=== PATIENT | female | born 1965 | race Caucasian/White ===

== ENCOUNTER 2016-08-15 14:01 | Inpatient (IN) | payer OTHER ==
[~2016-08-15] VITALS: Ht 167.6 cm; Wt 73.9 kg
--- NOTE | ~2016-08-15 | ECHO ---
Transthoracic Echocardiography Report (TTE) Demographics Patient Name FADY HOTY Date of Study 08/16/2016 Patient Number [id number] Visit Number [id number] Date of 1965 Room Number G6332 Accession Number [id number] Gender Female Age 50 year(s) Referring Ayden Joseph Military Education Coordinator Mitesh Gant Physician Don Angeles MD Physician Interpreting Katiuska Lamb MD Case Manager Specialist Physician Supervising Ordering Physician Kinsey Angeles MD/HUNG HARO Nurse Stress Salad Counter Attendant Conclusions Contractility Score Summary Normal Left Ventricular contractility was noted. Summary The estimated left ventricular ejection fraction is 55-60%. Normal left ventricle size and function. Diastolic assessment reveals Grade II pseudonormal diastolic function. The right atrium is mildly dilated. The ascending aorta appears mildly dilated. The maximum diameter measures 3.4 cm. Normal left ventricle size and function. Diastolic assessment reveals Grade II pseudonormal diastolic function. Apicoseptum shows mild to moderate hypokinesis Procedure Type of Study TTE procedure:2D Echocardiogram, M-Mode, Doppler , Color Doppler. Procedure Date Date: 08/16/2016 Start: 07:00 AM Study Location: Inpatient Portable Technical Quality: Good visualization Indications:Acute coronary syndrome. Appropriate Use Criteria: 9 Patient Status: Routine HR: 56 bpm BP: 91/55 mmHg Allergies - No known allergies. M-Mode/2D Measurements LV Diastolic Dimension: 5.21 cm LV Systolic Dimension: 3.16 cm LV Septum Diastolic: 0.77 cm LV PW Diastolic: 0.9 cm AO Root Dimension: 2.8 cm Cardiac Output: 4.06 l/min LA Dimension: 3.1 cm EF Estimated: 60 % LVOT: 1.9 cm LVOT VTI: 25.6 cm RV Base: 2.45 cm LV Stroke volume: 72.55 ml RV Length: 7.88 cm TAPSE: 2.11 cm TDI-S': 9.54 cm/s Doppler Measurements AV Peak Velocity: 1.23 m/s MV Peak E-Wave: 0.62 m/s AV Peak Gradient: 6.05 mmHg MV Peak A-Wave: 0.57 m/s AV Mean Gradient: 4 mmHg MV E/A Ratio: 1.09 LVOT Peak Velocity: 0.99 m/s MV P1/2t: 51 msec TR Gradient:17.64 mmHg PV Peak Velocity: 0.74 m/s Estimated RAP:8 mmHg PV Peak Gradient: 2.17 mmHg Estimated RVSP: 26 mmHg Estimated PASP: 25.64 mmHg E' Septal Velocity: 0.06 m/s A' Septal Velocity: 0.09 m/s E' Lateral Velocity: 0.13 m/s A' Lateral Velocity: 0.09 m/s Findings Left Ventricle Normal left ventricle size and function. Diastolic assessment reveals Grade II pseudonormal diastolic function. Apicoseptum shows mild to moderate hypokinesis Right Ventricle Normal right ventricle structure and function. Left Atrium Normal left atrial size. Right Atrium The right atrium is mildly dilated. Mitral Valve Trivial mitral regurgitation by color Doppler. Aortic Valve Normal aortic valve structure and function. Tricuspid Valve Trivial tricuspid regurgitation by color Doppler. Pulmonic Valve Normal pulmonic valve structure and function. Pericardial Effusion No evidence of pericardial effusion. Miscellaneous Visualized portions of the aortic root and ascending aorta appear normal in size. Pleural Effusion No evidence of pleural effusion. Contractility Score LV regional wall motion:(0-Non visualized 1-Normal 2-Hypokinesis 3-Akinesis 4-Dyskinesis 5-Aneurysm) Signature dtt: Adonis Harp (cardio) dtd: 08/16/16 0700 Physician Self Edit
--- NOTE | ~2016-08-15 | CON ---
PATIENT'S NAME: FADY HOYT [facility] AGE: 50 Y [address] ROOM: [address] [place] [id number] LOCATION: GPCU ADMIT DATE: 08/15/2016 Consultation DISCHARGE DATE: 08/17/2016 FAMILY PHYSICIAN: Opal Hensley APRN ATTENDING PHYSICIAN: TRAMAINE MATHUR REFERRING PHYSICIAN: Adonis Harp MD REASON FOR CONSULTATION: Elevated cardiac enzymes. HISTORY OF PRESENT ILLNESS: This is a 50-year-old female who presented to the emergency room on 08/15/2016 with complaints of migraine. She started having a migraine which is a frequent occurrence for her, that was fairly severe. She did not have any blurred vision or vision changes. She did not have any nausea initially. She took a Maxalt tablet, and subsequently, she started experiencing palpitations, the palpitations then resolved, and then she started experiencing chest heaviness in the center of her chest. There is no radiation to the back or neck, but it was very concerning, so she was brought to the emergency room. She was given nitroglycerin in the emergency room and the chest pain resolved. She does carry a history of supraventricular tachycardia which was diagnosed in May. At that time, she had seen Dr. Lopez and had an echocardiogram that did not show any abnormalities according to her. She has not had any problems with exertional chest pain. She has been a little more fatigued lately. She denies shortness of breath, orthopnea, or PND. PAST MEDICAL HISTORY: 1. Migraines. 2. History of CVA. 3. Leukopenia. 4. Psoriasis. PAST SURGICAL HISTORY: 1. Total abdominal history with BSO. 2. Needle aspiration of thyroid in December 2015. 3. History of endometrial ablation before the hysterectomy. ALLERGIES: NONE TO MEDICATION. HOME MEDICATIONS: 1. Excedrin migraine 1-2 caps every 12 hours p.r.n. headache. 2. Vitamin D3 5000 mg every day. 3. Estradiol 0.5 mg transdermal two days a week, on Sunday and . 4. Naproxen 500 mg b.i.d. 5. Maxalt 10 mg every 12 hours p.r.n. PATIENT'S NAME: FADY HOYT [facility] AGE: 50 Y [address] ROOM: [address] [place], [place] [address] LOCATION: GPCU ADMIT DATE: 08/15/2016 Consultation DISCHARGE DATE: 08/17/2016 FAMILY PHYSICIAN: Opal Hensley APRN ATTENDING PHYSICIAN: TRAMAINE MATHUR FAMILY HISTORY: Mother has hypertension. Father had hypertension and high cholesterol. She has a brother with migraines and sister with migraines. SOCIAL HISTORY: She is . Her is with her today. She has never smoked. Rarely uses alcohol. REVIEW OF SYSTEMS: Head: She does have frequent migraine headaches. EYES: No blurred vision or double vision. EARS: No problems with hearing. NOSE: No epistaxis or rhinorrhea. MOUTH: No gingival bleeding. THROAT: Denies sore throat, hoarseness, or difficulty swallowing. PULMONARY: There is no report of cough or hemoptysis. No history of pulmonary embolus. GASTROINTESTINAL: Negative for nausea, vomiting, or diarrhea. No melena or hematochezia. No history of elevated liver enzymes. GENITOURINARY: Negative for urinary frequency, she is post complete hysterectomy. MUSCULOSKELETAL: No complaints of arthralgias or myalgias. NEUROLOGIC: She denies numbness or tingling. No feelings off balance. PHYSICAL EXAMINATION: VITAL SIGNS: She is 5 feet and 6 inches tall. Weighs 159 pounds. Blood pressure is 143/73, heart rate 62, temperature is 97.6. SKIN: Warm, dry, and pink. HEENT: Pupils equal, round, and react briskly. NECK: Soft and supple. No lymphadenopathy or thyromegaly. JVD is flat. LUNGS: Sounds are clear. CV: Regular with a normal S1, S2. ABDOMEN: Soft. Bowel sounds are present. EXTREMITIES: Show no peripheral edema. No clubbing. No cyanosis. LAB: Cardiac enzymes show a troponin I of 0.060 to 1.36. CK-MB went from 1.1 to as high as 7.3, glucose 99, BUN 13, creatinine 0.9. Sodium is 141, potassium 3.6, hemoglobin was 14.4, white count 6.6. UA was normal. ASSESSMENT: Non ST-elevation myocardial infarction. We will plan on a left heart catheterization today, suspect left circumflex lesion. The risks and benefits have been discussed with her and she is in agreement with proceeding with that PATIENT'S NAME: FADY HOYT [facility] AGE: 50 Y [address] ROOM: [place] [address] LOCATION: GPCU ADMIT DATE: 08/15/2016 Consultation DISCHARGE DATE: 08/17/2016 FAMILY PHYSICIAN: Opal Hensley APRN ATTENDING PHYSICIAN: TRAMAINE MATHUR. The assessment plan, history of present illness, and physical exam per Dr. Ashely Harp. KEVIN HANEY APRN FOR MD ZAYNAB ROBERTS/alirio /[id number] d: 08/17/16 1321 t: 08/26/16 1312, CONSULTATION REPORT
--- NOTE | ~2016-08-15 | HP ---
PATIENT'S NAME: FADY HOYT [facility] AGE: 50 Y [address] ROOM: [place] [address] LOCATION: GPCU ADMIT DATE: 08/15/2016 History & Physical DISCHARGE DATE: FAMILY PHYSICIAN: Opal Hensley APRN ATTENDING PHYSICIAN: TRAMAINE MATHUR DATE OF SERVICE: CHIEF COMPLAINT: Headache and chest pressure. HISTORY OF PRESENT ILLNESS: This is a 50-year-old female, who presented to the ER today with headache. The patient states that she has a history of migraines. She started having a migraine that was pretty sudden in onset and pretty severe. She did not have any blurry vision or vision changes at that point of time. She did not have any nausea. The patient took a Maxalt tablet. Subsequently, she started experiencing palpitations. The palpitations then resolved. She also had chest pressure that was in the center of the chest with no radiation to the back or into the neck. She was then brought to the ER at that point of time. She was given nitroglycerin in the ER and her chest pressure resolved. Currently, she is chest pain-free. Her headache also resolved after some pain medications in the ER. The patient states that she has a history of SVT that she was diagnosed in May of last year. At that point of time, she was placed on medication. She also had an echo done that was clean at that point of time. The patient denies any shortness of breath. She denies any lightheadedness. She denies any abdominal pain. Denies diarrhea or constipation. No other complaints at this point in time. REVIEW OF SYSTEMS: Ten-point review of systems done and was otherwise negative except as mentioned above. HOME MEDICATIONS: Per AUG. PAST MEDICAL HISTORY: 1. History of SVT. 2. History of migraine. FAMILY HISTORY: No history of cancer or heart disease reported. SOCIAL HISTORY: Denies smoking or alcohol use. PATIENT'S NAME: FADY HOYT [facility] AGE: 50 Y [address] ROOM: [address] [place] [id number] LOCATION: GPCU ADMIT DATE: 08/15/2016 History & Physical DISCHARGE DATE: FAMILY PHYSICIAN: Opal Hensley APRN ATTENDING PHYSICIAN: TRAMAINE MATHUR ALLERGIES: NONE REPORTED. PHYSICAL EXAMINATION: VITAL SIGNS: Temperature 97.6, pulse 62 and regular, respirations 17, blood pressure 141/73, saturation 98% on room air. GENERAL: The patient is alert and oriented x3, answers all questions appropriately, in no acute distress. HEENT: Head: Normocephalic, atraumatic. Pupils are equal, round, and reactive to light, extraocular muscles are intact. Oropharynx is moist. NECK: Supple. No nuchal rigidity. HEART: Regular rate and rhythm. LUNGS: Clear to auscultation bilaterally. ABDOMEN: Soft, nontender, nondistended. Bowel sounds are present. EXTREMITIES: No clubbing, cyanosis, or edema. VASCULAR: Pulses are 2+ distally bilaterally. NEUROLOGIC: The patient is alert and oriented x3. Follows all commands. Moves all extremities. Cranial nerves 2 through 12 grossly intact. Deep tendon reflexes are 2+/4. DIAGNOSTIC STUDIES: Cardiac enzymes were done. CPK 82 and subsequently 95. Troponin I 0.06 and subsequently increased to 1.36. CBC showed a white count of 6.6, hemoglobin 14.4, hematocrit 42.6, and platelets 244. CMP showed sodium 141, potassium 3.6, chloride 104, bicarb 25, BUN 13, creatinine 0.9, glucose 99, calcium 9.2, total protein 8.0, albumin 4.3, AST 19, ALT 27, alkaline phosphatase 58, total bilirubin 0.5, mag 2.2. GFR more than 60. Lipid panel pending at this point of time. PT 10.6, INR 1.0, and PTT 26. CK-MB 1.1 and subsequently 3.6. TSH 1.48. Chest x-ray was done in the ER for chest pain and showed no acute cardiopulmonary abnormality. Head CT was done for severe migraine and showed no acute intracranial pathology on noncontrast head CT study. EKG was done and showed sinus rhythm with no acute ST changes at a rate of 69 beats per minute. ASSESSMENT AND PLAN: A 50-year-old female presenting with migraine and xru-BX-obbixme elevation myocardial infarction. 1. Migraine. The patient took Maxalt. She was subsequently given pain medication in the ER and her migraine headache has resolved. Monitor for now. 2. History of supraventricular tachycardia. The patient has a history of supraventricular tachycardia in the past. She also had tachycardia today. Per the patient, the tachycardia appears to have resolved. Monitor for now. EKG does not show any changes of abnormal heart rhythm. PATIENT'S NAME: FADY HOYT [facility] AGE: 50 Y [address] ROOM: [place] [address] LOCATION: [facility] ADMIT DATE: 08/15/2016 History & Physical DISCHARGE DATE: FAMILY PHYSICIAN: Opal Hensley APRN ATTENDING PHYSICIAN: TRAMAINE MATHUR 3. Scm-BE-ehpivkv elevation myocardial infarction. The patient's cardiac enzymes are elevated. Her chest pressure has resolved currently. I will consider nitroglycerin drip if the patient's chest pressure returns. We will place her on the ACS protocol. Discussed with Dr. Adonis Harp, Cardiology. We will obtain an echocardiogram in the a.m. I will place the patient on heparin drip for now. 4. Code status: FULL CODE. Discussed with the patient at the time of admission. 5. Deep vein thrombosis prophylaxis. The patient is on heparin drip. TRAMAINE MATHUR MD MT/alirio /[id number] D: T: HISTORY & PHYSICAL
--- NOTE | ~2016-08-15 | CATH ---
Cardiac Diagnostic + PCI Report Demographics Patient Name EVELINA Thurman Gender Female Date of 1965 Age 50 year(s) Patient Number [id number] Date of Study 08/16/2016 Visit Number [id number] Room Number G6332 [place] [id number] Ht 167.64 cm Wt 72.12 kg Referring Katiuska Lamb MD Primary Physician Physician Performing [facility] Secondary Physician Physician Subha HARO Diagnostic [facility] Assisting Physician Physician Subha HARO Interventional [facility] Physician Liability Analyst Physician Subha HARO Findings and Conclusions Diagnostic Findings and Conclusion 1 vs CAD, distal LAD subtotalled and apical LAD with 60% lesion, diffuse disease, very small vessel. Patiend admitted with NSTEMI and trop I was 3.56. Diagnostic Recommendations PTCA of distal LAD. Interventional Findings and Conclusion Successful PTCA of the distal LAD with prolonged inflations with 2.0/20 mm balloon at 6 elisa for 1:30 seconds: 99% stenosis with residual 30% stenosis in the distal LAD lesion. Did not attempt PTCA of the apical LAD as the vessel was very small. 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 Patient will be observed overnight. Hydration and followup creatinine. Patient has been instructed to not lift anything more than 5 pounds for 1 week. Aggressive risk factor management. Beta Jorge. Dual Anti-platelet therapy for 1 year since she had a NSTEMI. Lipid lowering medication: statin will be given. Cardiac diet . Optimization of medical therapy as an outpatient. Referral to Cardiac Rehabilitation now and at discharge . I would like to thank Dr. Harp for the opportunity to participate in the care of Mrs Ladd . Procedure Description The patient was brought to the diagnostic cardiac catheterization-EP laboratory in the fasting, non-sedated state. Informed consent was obtained in the written and verbal form after the risks and benefits were explained. The patient had no further questions and agreed to proceed. The planned puncture-incision site(s) were shaved and prepped with ChloraPrep and draped in the usual sterile manner. Conscious sedation, supplemental oxygen, and pain control medications were delivered by a registered nurse under physician guidance. Surface ECG rhythm, blood pressure measurement, and pulse oximetry were monitored throughout the procedure. Arterial access. The access site was infiltrated with lidocaine. The vessel was entered with the Seldinger technique. A sheath was advanced into the vessel and used for catheter placement. Left heart catheterization. A catheter was advanced across the aortic valve to the left ventricle under fluoroscopic guidance. Resting hemodynamics were obtained. Selective right coronary angiography. A catheter was advanced into the right coronary vessel ostium under fluoroscopic guidance. Contrast was injected by hand. Images were obtained in multiple projections. Selective left coronary angiography. A catheter was advanced into the left coronary vessel ostium under Fluoroscopic guidance. Contrast was injected by hand. Images were obtained in multiple projections. Angioplasty: A guiding catheter was used to intubate the vessel. A 0.14 wire was used to cross the lesion. A balloon was positioned across the lesion and inflated. Post placement angiograms were performed. Arterial artery hemostasis was achieved. The patient was transferred to a regular nursing floor via bed accompanied by a nurse. The patient left the laboratory in stable condition. Diagnostic Cath Status: Urgent Interventional Cath Status: Urgent Procedure Procedure Type Diagnostic procedure:Angiography:, Coronary Angios /[facility] PCI procedure Indications: Non-ST elevation. The procedure was explained in detail to the patient. Risks, complications and alternative treatments were reviewed. Written consent was obtained. Medications Reviewed with Patient prior to Procedure. Angiographic Findings Dominance: Right Cardiac Arteries and Lesion Findings LMCA: Normal (0% Stenosis). LAD: Abnormal. Lesion on Dist LAD: Proximal subsection.99% stenosis 20 mm length reduced to 30%. Pre procedure PIPER III flow was noted. Post Procedure PIPER III flow was present. The guidewire cross was successful.The lesion was diagnosed as a high risk lesion.Culprit lesion. Devices used - Runthrough NS .014 x 180. Number of passes: 1. - Emerge Balloon 2.0 x 20. 3 inflation(s) to a max pressure of: 6 elisa. Lesion on Dist LAD: Distal subsection.60% stenosis . Pre procedure PIPER III flow was noted. The lesion was diagnosed as a moderate risk lesion. LCx: Normal (0% Stenosis). RCA: Normal (0% Stenosis). Ramus: Normal (0% Stenosis). Coronary Tree Procedure Data Procedure Date Date: 08/16/2016Start: 11:21 AMEnd: 12:16 PM Entry Locations - Retrograde Percutaneous access was performed through the Right Radial artery (Primary location). A 5 Fr sheath was inserted. Hemostasis was successfully obtained using Mechanical Compression. Closure Comments: TR BHARAT HAS 13CC AIR BY BERTHA YBARRA. Procedure Medications Order and Administration + + + + + !Time !Medication !Dosage !Route ! + + + + + !08/16/2016 11:16 !Versed !1 mg !I.V. ! !AM ! ! ! ! + + + + + !08/16/2016 11:17 !Fentanyl !25 mcg !I.V. ! !AM ! ! ! ! + + + + + !08/16/2016 11:26 !Heparin (ACC_3) !4000 units !I.V. bolus ! !AM ! ! ! ! + + + + + !08/16/2016 11:32 !0.9% NaCl !200 ml !I.V. bolus ! !AM ! ! ! ! + + + + + !08/16/2016 11:33 !Nitroglycerin !200 mcg !I.C. ! !AM ! ! ! ! + + + + + !08/16/2016 11:35 !Fentanyl !25 mcg !I.V. ! !AM ! ! ! ! + + + + + !08/16/2016 11:41 !Angiomax (Bivalirudin) !52.5 mg !I.V. bolus ! !AM !(ACC_5) ! ! ! + + + + + !08/16/2016 11:42 !Angiomax (Bivalirudin) !1.75 mg/kg/hr!I.V. drip ! !AM !(ACC_5) ! ! ! + + + + + !08/16/2016 11:57 !0.9% NaCl !200 ml !I.V. bolus ! !AM ! ! ! ! + + + + + !08/16/2016 11:58 !Nitroglycerin !200 mcg !I.C. ! !AM ! ! ! ! + + + + + !08/16/2016 12:03 !Plavix (ACC_8) !600 mg !P.O. ! !PM ! ! ! ! + + + + + Devices Used - A5 Fr. BS JL 3.5 Diag. Catheterwas used for:Left coronary angiography. - A6 Fr. EBU 3.5 Guide Catheterwas used for:LAD Intervention. - A5 Fr. BS JR 4 Diag. Catheterwas used for:Right coronary angiography. Contrast Material - Isovue [id number] ml Fluoroscopy Time: Diagnostic: 13:42 minutes. Total: 13:42 minutes. Fluoroscopy Dose: Diagnostic: 1136 mGy. Total: 1136 mGy. Estimated Blood Loss: 5 ml. Additional [facility] PCI Information PCI Indication:PCI for high risk Non-STEMI or unstable angina. Medical History Allergies - No known allergies. Risk Factors The patient risk factors include:hypertension. Admission Data Admission Date: 08/15/2016 Admission Time: 03:54 PM Insurance Payors: Private health insurance. Admission Medications + +------+------+ + + + + !Medication !Dosage!Times !Last !Last !Administered !Comments ! ! ! !Per !Delivery !Delivery ! ! ! ! ! !Day !Date !Time ! ! ! + +------+------+ + + + + !Aspirin ! ! ! ! ! ! ! !(any) ! ! ! ! ! ! ! + +------+------+ + + + + !Statin ! ! ! ! ! ! ! !(any) ! ! ! ! ! ! ! + +------+------+ + + + + !Beta ! ! ! ! ! ! ! !Jorge ! ! ! ! ! ! ! !(any) ! ! ! ! ! ! ! + +------+------+ + + + + Clinical Evaluation Leading to Procedure Diagnosed on 08/16/2016 08:00 AM. - The patient's CAD presentation was assessed as: Non-STEMI. - The patient's anginal syndrome during the past two weeks was assessed as: Class III according to the [place] Cardiovascular Society Classification System (CCS). Anti-anginal medications were prescribed during the past two weeks. The medication is: Beta Blockers. Hemodynamics Condition: Rest O2 Consumption: Estimated: 161.02Heart Rate: 47 bpm Pressures (mmHg) +-----+ + !Site !Pressure ! +-----+ + !LV !131/7 ,19 ! +-----+ + !LV !133/2 ,17 ! +-----+ + !AO !131/76 (98) ! +-----+ + !LV !130/7 ,19 ! +-----+ + !AO !133/81 (102) ! +-----+ + !AO !/ (2) ! +-----+ + !AO !109/25 (58) ! +-----+ + !AO !160/90 (117) ! +-----+ + !AO !145/79 (104) ! +-----+ + Valve Gradients and Areas + +---------+---------+---------+ +---------+ + !Valve !Peak !Mean !Area !Index !Flow !Source ! + +---------+---------+---------+ +---------+ + !Aortic !0 !0 ! ! ! ! ! + +---------+---------+---------+ +---------+ + !Aortic !0 !0 ! ! ! ! ! + +---------+---------+---------+ +---------+ + Shunts Oxygen Values O2 Capacity 195.84 O2 Consumption 161.02 Signatures dtt: SUBHA HAIR dtd: 08/16/16 1121 Physician Self Edit
--- NOTE | ~2016-08-15 | CON ---
PATIENT'S NAME: FADY HOYT [facility] AGE: 50 Y [address] ROOM: [id number] [place], [place] [address] LOCATION: GPCU ADMIT DATE: 08/15/2016 Consultation DISCHARGE DATE: 08/17/2016 FAMILY PHYSICIAN: Opal Hensley APRN ATTENDING PHYSICIAN: TRAMAINE MATHUR DATE OF CONSULTATION: 08/17/2016 REFERRING PHYSICIAN: Adonis Harp MD NEUROLOGICAL CONSULTATION TIME: 10:39 a.m. CHIEF COMPLAINT: Migraine headache. HISTORY OF PRESENT ILLNESS: This is a 50-year-old, who presented to the emergency room via an outside EMS service. She had a migraine around 10 o'clock and she took her Maxalt, which she normally takes for migraines and then took a second Maxalt several hours later and developed some chest pain. The pain lasted about 2 minutes and it was pressure type without nausea, vomiting, shortness of breath, or diaphoresis, but she did come to the hospital for this. They gave her baby aspirin en route. Since she arrived at the hospital, she has since had a heart cath and a PTCA of the LAD. Thus the Maxalt is not a good idea of moving forward with her migraine headache treatment. She has been having migraine headaches for years. She has tried Topamax as a preventive medication without success. She states she gets a lot of side effects with that. Her headaches are described as throbbing. They go around the right side of her head and down into her neck. She says she cannot focus and certainly cannot work with these headaches. No nausea and vomiting with the headaches. She has been on the Maxalt for years and usually takes anywhere from 6 to 12 per month. Her headaches are very variable, but do not seem to run in a pattern with seasons or stress or work flow. She has had an MRI and a CT and show no pathology. Her concern moving forward is what does she do for her headaches since Triptans are definitely out of the picture now. She did take an Excedrin Migraine this morning, which was somewhat helpful. She has tried nasal oxygen, but that does not seem to have moved her headache at all. She does have no known allergies. Medications that were on the chart and reviewed. Of note, she is on estradiol and has been for some time. The Maxalt of course has been discontinued. She has been started on Toprol-XL also since her heart event. PAST MEDICAL HISTORY: PATIENT'S NAME: FADY HOYT [facility] AGE: 50 Y [address] ROOM: [id number] [place], [place] [address] LOCATION: GPCU ADMIT DATE: 08/15/2016 Consultation DISCHARGE DATE: 08/17/2016 FAMILY PHYSICIAN: Opal Hensley APRN ATTENDING PHYSICIAN: TRAMAINE MATHUR Includes these migraines and SVT. PAST SURGICAL HISTORY: Includes hysterectomy and thyroid biopsy. SOCIAL HISTORY: She denies drug, smoking, or alcohol use. She works in a busy physician's office. REVIEW OF SYSTEMS: She denies nausea, vomiting, photophobia, or phonophobia at this time. Her headache is a 7/10. The headache is mostly on the right side of her head and going down to her neck. She states when she does have a headache, it usually lasts 72 hours. Denies nausea and vomiting and the rest of the review of systems was negative except as mentioned. PHYSICAL EXAMINATION: VITAL SIGNS: Her height is 5 feet 6 inches, and her stated weight is 73.3 kg. Blood pressure is 142/72, pulse 59, respirations 16, temperature is afebrile, and saturations are 99% on the 2 L nasal cannula that she is using to try to get rid of her headache. GENERAL: She is alert, anxious, well-developed 50-year-old, female. She participates in the exam and interview. HEENT: Her head is normocephalic and atraumatic. Her ears show good light reflexes bilaterally. Throat without thyromegaly. NECK: Supple. No lymphadenopathy. No nuchal rigidity. LUNGS: Clear to auscultation bilaterally. HEART: Regular rate and rhythm. No murmurs noted. NEUROLOGIC: Cranial nerves 2 through 12 intact. Pupils are equal, round, reactive to light and accommodation. Red reflex intact. Power is intact with good muscle development x4 extremities. Gait was not observed. MUSCULOSKELETAL: Good muscle development throughout. Of note, her left sternocleidomastoid muscle is quite tense. DIAGNOSTIC DATA: Includes a CT done in the emergency room with no acute intracranial pathology identified. In summary, this is a 50-year-old female presenting with migraine and long- time year of Triptans who has now had a non-STEMI. Triptans are no longer indicated and we need a different plan moving forward. 1. Of course, to discontinue the Triptan, which is already been done. The patient was educated on why the use of Triptans are not a viable option at this time. 2. Use Aleve or ibuprofen or Excedrin Migraine for breakthrough headache. PATIENT'S NAME: FADY HOYT [facility] AGE: 50 Y [address] ROOM: [id number] [place], [place] [address] LOCATION: GPCU ADMIT DATE: 08/15/2016 Consultation DISCHARGE DATE: 08/17/2016 FAMILY PHYSICIAN: Opal Hensley APRN ATTENDING PHYSICIAN: TRAMAINE MATHUR The patient was educated on functioning of the ibuprofen for rapid absorption. 3. Prophylactic medication. The patient has enough migraines per month to warrant prophylactic medication. She has tried Topamax, but has not had good luck with that related to side effects. We will start Depakote 250 mg b.i.d. At this low dose and because this is not used for seizures, there will be no need to monitor levels. The only monitoring will be her liver enzymes, which are checked once yearly. Her liver enzymes are within normal limits at this hospitalization. The side effects of Depakote including possible sleepiness and liver involvement were discussed with the patient. 4. Consider weaning the estradiol patches. This was told to the patient and she will discuss this with her primary care physician. 5. For long-term treatment of the migraines, consider Botox injections. Would like the patient to follow up in Neurology Clinic in 4 weeks. Botox injections can decrease the intensity of the headache by 50% and also decrease the frequency of the headache by 50%. 6. Can use Fioricet 1 to 2 q.6 hours p.r.n. migraine pain. The patient has tried 1 of these in the past, but really cannot remember if it was successful or not. The plan of care was communicated to Dr. Chan. Dr. Abdalla and I saw the patient in tandem. The patient and her friend's questions were answered to the best of our abilities. The plan of care was understood by the patient. I would like to thank you for this interesting consultation and welcome the ability to treat this patient for her chronic migraines. YULIANA HICKS APRN FOR BRITTNEE ABDALLA MD PP/alirio /[id number] d: 08/17/16 1614 t: 08/21/16 1322, CONSULTATION REPORT
--- NOTE | ~2016-08-15 | ER ---
PATIENT'S NAME: FADY HOYT [facility] AGE: 50 Y [address] ROOM: [address] [place], [place] [address] [facility] ADMIT DATE: 08/15/2016 ER/Outpatient Report DISCHARGE DATE: FAMILY PHYSICIAN: Opal Hensley APRN ATTENDING PHYSICIAN: TRAMAINE MATHUR Time of Arrival: 1401 hours. Time of Evaluation: 1401 hours. CHIEF COMPLAINT: Migraine headache and short episode of chest pain. HISTORY OF PRESENT ILLNESS: A 50-year-old female presents to the ER via [facility]. The patient states she started having a migraine headache around 10 o'clock this morning. It was a sudden onset of her migraine which is unusual for her normal migraine and she did take a Maxalt. She states she took a second Maxalt around noon today and then after that dose she developed some substernal chest pain. She states that pain lasted approximately 2 minutes, it was pressure-type pain, it did not cause her any nausea, no vomiting, no shortness of breath, no diaphoresis. She states the pain did not radiate anywhere. She states this concerned her, so she called 911. En route here to the hospital her chest pain went away. They did give her baby aspirin en route. On my initial examination, the patient continued to be chest pain free. States her headache has returned. She states that her pain in her head is approximately a 9/10. She states that she does have history of migraines. She had a similar migraine like this last week, but it did go away with the Maxalt at home. She had had an upper respiratory infection a couple weeks ago but has gotten over that. She states that she does have a history of SVT and she did have an echo done in [place] at the end of May and has followed up with Dr. Lopez in June. She states everything checked out okay at that time. ALLERGIES: NO KNOWN ALLERGIES. MEDICATIONS: Please see medication list in nurse's notes. PAST MEDICAL HISTORY: Migraines and SVT. She has had a hysterectomy and a thyroid biopsy. SOCIAL HISTORY: Denies smoking, drug, or alcohol use. REVIEW OF SYSTEMS: PATIENT'S NAME: FADY HOYT [facility] AGE: 50 Y [address] ROOM: [address] [place], [place] [address] LOCATION: GPCU ADMIT DATE: 08/15/2016 ER/Outpatient Report DISCHARGE DATE: FAMILY PHYSICIAN: Opal Hensley APRN ATTENDING PHYSICIAN: TRAMAINE MATHUR A 10-point review of system was completed and was negative with the exception of those discussed in the HPI. PHYSICAL EXAMINATION: VITAL SIGNS: Height 5 feet 6 inches, stated; weight 73.3 kg, taken; blood pressure is 175/98; pulse 64; respirations 16; temperature 96.4 degrees tympanically; saturations 99% on room air. Manju Coma Score is 15. GENERAL: Alert, anxious, well developed, 50-year-old, in mild distress. HEENT: Head, normocephalic. Ears; TMs display good light reflexes bilaterally. Auditory canals clear. Nose; turbinates pink with no drainage. Throat; no exudates or erythema. She does display moist mucous membranes. Eyes; pupils are equal and reactive to light. NECK: Supple. No lymphadenopathy. LUNGS: Clear to auscultation bilaterally. No wheezes or crackles. Normal respiratory effort. HEART: Regular rate and rhythm. No lifts, thrills, or murmurs. ABDOMEN: Soft, it is nontender. She has good bowel sounds throughout. No masses were palpated. EXTREMITIES: No clubbing or cyanosis. She does have full range of motion of all limbs. NEUROLOGIC: Cranial nerves 2 through 12 grossly intact. Gait not observed. SKIN: Warm, dry, and intact. LABORATORY DATA: CBC; white count is 6.6, hemoglobin 14.4, platelets 244. ANC is 4.4. INR is 1.0. CMS; potassium is 3.6, otherwise, unremarkable. Magnesium is 2.2. CPK is 82. CK-MB is 1.1. Troponin I is 0.060. EKG shows sinus rhythm. Chest x- ray was negative for any infiltrate. CT scan of the head was negative. IMPRESSION: 1. Episode of chest pain with elevated troponin. 2. Migraine headache. 3. History of SVT ASSESSMENT AND PLAN: We did establish an IV here in the emergency room and we did give her a liter of fluids along with 50 mg of Benadryl and 10 mg of Compazine. The patient states that this did not really change her headache at all, so we did give her 2 mg of morphine and 30 mg of Toradol which really improved her pain. The patient does not have a primary care physician here in [place]. I did give her option if she would like to keep her first crusher, but the patient states that she would like to stay here and she will see a first crusher that is provided here at [facility]. The patient continued to rest comfortably. Prior to her CT scan, her chest discomfort did come back, but she states that it was only a 2/10 and that when we gave her morphine and Toradol that did improve that pain. I did call Dr. Mathur who was on-call for the hospitalist, PATIENT'S NAME: FADY HOYT [facility] AGE: 50 Y [address] ROOM: [address] [place] [id number] [facility] ADMIT DATE: 08/15/2016 ER/Outpatient Report DISCHARGE DATE: FAMILY PHYSICIAN: Opal Hensley APRN ATTENDING PHYSICIAN: TRAMAINE MATHUR and he will be admitting her for chest pain rule out. The patient and patient's family understand and agree with care. DESIRAE COX PA-C FOR DO MAU BLAKE/mauricel /[id number] d: 08/16/16 0523 t: 08/23/16 1332, OUTPATIENT REPORT
--- NOTE | ~2016-08-15 | DS ---
PATIENT'S NAME: FADY HOYT [facility] AGE: 50 Y [address] [place]OM: [facility] [place], [place] [address] LOCATION: GPCU ADMIT DATE: 08/15/2016 Discharge Summary DISCHARGE DATE: 08/17/2016 FAMILY PHYSICIAN: Opal Hensley APRN ATTENDING PHYSICIAN: Jared Euceda FINAL DIAGNOSES: 1. Non-ST elevation myocardial infarction. 2. Migraine headaches. 3. History of supraventricular tachycardia. PROCEDURES: She had a PTCA of the distal LAD. It was unable to be stented due to size. This was done on August 16, 2016, by Dr. Garcia. Please see the history and physical dictated by Dr. Euceda for details of admission. LABORATORY DATA: On admission, sodium 141, potassium 3.6, chloride 104, CO2 of 25, BUN 19, creatinine 0.3. Liver enzymes were normal. Initial troponin was 0.06. Her troponins then did jump to peak of 3.5, then trended downward, value most prior to discharge 0.552. BUN prior to discharge 11, creatinine 0.8. On admission, white blood cell count 6.6, hemoglobin 14.4, hematocrit 42.6, and platelet count 244. PTT was 26, pro-time 10.6, INR 1. IMAGING DATA: Chest x-ray on admission did not show any acute pulmonary process. CT scan of the head done on admission due to migraine did not show any intracranial abnormality. HOSPITAL COURSE: The patient was admitted with concern of a non-STEMI. Her cardiac enzymes did continue to rise. The patient was placed on IV heparin, and Cardiology was asked to see the patient. I did feel that she would need to have a cardiac catheterization. The patient was taken to the orthodontic laboratory technician. Please see the cath report for full details. The patient had a 99% lesion in the distal LAD. However, it was not amenable to stent, and an angioplasty was done. Postoperatively, she was admitted back to floor and continued to complain of a migraine headache like she had on admission. Because of the recent PA, she was not able to use her Maxalt, and we are unable to use anti- inflammatories. There was some concern about how she was going to manage this as an outpatient, so she was seen by Teleneurology Service in consultation. [facility] and try Fioricet for when she had pain. Dr. Harp did note on postprocedure day one EKG, which showed T-wave inversions. He did change her aspirin to 325 mg and put on nitroglycerin patch. It was felt that she was stable for discharge to home. She will follow up with Dr. Harp with a BMP in 2 weeks. She will see Lizbeth Ornelas APRN in 4 weeks, September 13. Her activity restrictions were post cath routine restrictions. She was also advised to do Cardiac Rehab Phase II. Advised not to use nonsteroidals for 30 days. PATIENT'S NAME: FADY HOYT [facility] AGE: 50 Y [address] ROOM: [id number] [place] [id number] LOCATION: GPCU ADMIT DATE: 08/15/2016 Discharge Summary DISCHARGE DATE: 08/17/2016 FAMILY PHYSICIAN: Opal Hensley APRN ATTENDING PHYSICIAN: Jared Euceda DISCHARGE MEDICATIONS: 1. Estradiol 0.5 patch, change 2 times per week. 2. Vitamin D 5000 units daily. 3. Excedrin Migraine 1-2 every 12 hours as needed for headache. 4. Lipitor 40 mg daily. 5. Plavix 75 mg daily. 6. Vasotec 2.5 mg daily. 7. Toprol-XL 12.5 mg daily. 8. Aspirin 325 mg daily. 9. Depakote 250 mg twice daily. 10. Fioricet 1-2 every 6 hours as needed. 11. Nitroglycerin patch 0.2 mg on in the morning, off at night. OVERALL PROGNOSIS: At discharge was good. DAVID HENDERSON MD LAW/modl /[id number] CC: JULIO CESAR Rosenberg MD Pamela Palmer, APRN d: 08/18/16 0137 t: 08/30/16 1642, DISCHARGE SUMMARY
[2016-08-15 14:24] LABS: BASOPHIL % 0.5 %; EOSINOPHIL % 0.5 %; HEMATOCRIT 42.6 % (33.0-46.0); HEMOGLOBIN 14.4 g/dL (10.0-15.0); IMMATURE GRANULOCYTE % 0.2 %; LYMPHOCYTE # 1.8 K/uL (0.8-4.0); MCH 30.3 pg (27.0-34.0); MCHC 33.8 gm/dL (32.0-36.5); MCV 89.5 fl (83.0-98.0); MONOCYTE # 0.4 K/uL (0.0-1.0); MONOCYTE % 5.9 %; MPV 9.5 fl (9.4-12.4); NEUTROPHIL # (ANC) 4.4 K/uL (1.8-7.8); NEUTROPHIL % 65.9 %; NRBC % 0 /100WBC (0-0.00); PLATELET COUNT 244 K/uL (150-450); WBC 6.6 K/uL (4.0-11.0)
[2016-08-15 14:26] LABS: RBC 4.76 M/uL (3.50-5.50)
[2016-08-15 14:37] LABS: PROTIME 10.6 SECONDS (9.6-11.1); PTT 26 SECONDS (25-32)
[2016-08-15 14:44] LABS: ALBUMIN 4.3 gm/dL (3.5-5.0); ALK PHOS 58 IU/L (33-138); ALT 27 IU/L (12-78); ANION GAP 15.6 (10.0-19.0); AST 19 IU/L (10-40); BLOOD UREA NITROGEN 13 mg/dL (6-24); CALCIUM 9.2 mg/dL (8.5-10.5); CHLORIDE 104 mMol/L (96-110); CO2 25 mMol/L (22-32); CPK 82 IU/L (21-215); CREATININE 0.9 mg/dL (0.5-1.1); ESTIMATED GFR (MDRD EQUATION) > 60; MAGNESIUM 2.2 mg/dL (1.3-2.6); POTASSIUM 3.6 mMol/L (3.7-5.1); SODIUM 141 mMol/L (135-145); TOTAL BILIRUBIN 0.5 mg/dL (0.0-1.5)
[2016-08-15] MEDS ORDERED: MAXALT10 MG PO (18:14)
[2016-08-15] MEDS ORDERED: NAPROSYN500 MG PO (18:14)
[2016-08-15] MEDS ORDERED: VIVELLE-DOT1 EAC1 TRANS (18:15)
[2016-08-15] MEDS ORDERED: VITAMIN D5000 UNIT PO (18:15)
[2016-08-15] MEDS ORDERED: EXCEDRIN MIGRA1 EACH PO (18:16)
--- NOTE | 2016-08-15 21:31 | NUR ---
50 y/o female admitted for chest pain. [facility] MEDICAL & SURGICAL HISTORY - ENDOMETRIAL ABLATION, CRUZ/BSO, NEEDLE ASPIRATION OF THYROID, SVT, HX OF HYPERTENSION, MIGRAINES. REPORT GIVEN TO PT PRIMARY CARE NURSE EDER
--- NOTE | 2016-08-16 05:25 | NUR ---
Significant events: Pt A/Ox3. VSS, SBP 90-110's, HR 40-60's. Afebrile. On RA. Up SBA. No complaints of chest pain or migranes this shift. Heparin gtt running at 900units/hr, next ptthp at 0900. Dr. Harp notified of cardiac enzymes at 2200, ordered to keep pt NPO for possible heart cath this AM. Slept most of shift. NS at 70mL/hr.
[2016-08-16 07:58] LABS: BILIRUBIN URINE NEGATIVE (NEGATIVE); BLOOD URINE NEGATIVE /UL (NEGATIVE); COLOR URINE YELLOW (YELLOW); GLUCOSE URINE NEGATIVE (NEGATIVE); KETONE URINE NEGATIVE (NEGATIVE); LEUKOCYTES URINE NEGATIVE /UL (NEGATIVE); NITRITE URINE NEGATIVE (NEGATIVE); PROTEIN URINE NEGATIVE (NEGATIVE); SPEC GRAVITY URINE 1.015 (1.003-1.035); TURBIDITY URINE CLEAR (CLEAR); UROBILINOGEN URINE NORMAL (NORMAL)
[2016-08-16 09:37] LABS: BASOPHIL % 0.5 %; EOSINOPHIL # 0.1 K/uL (0.0-0.5); EOSINOPHIL % 1.7 %; HEMATOCRIT 36.6 % (33.0-46.0); HEMOGLOBIN 12.1 g/dL (10.0-15.0); IMMATURE GRANULOCYTE % 0.2 %; LYMPHOCYTE # 1.3 K/uL (0.8-4.0); LYMPHOCYTE % 31.6 %; MCH 30.5 pg (27.0-34.0); MCHC 33.1 gm/dL (32.0-36.5); MCV 92.2 fl (83.0-98.0); MONOCYTE # 0.4 K/uL (0.0-1.0); MONOCYTE % 9.4 %; MPV 9.9 fl (9.4-12.4); NEUTROPHIL # (ANC) 2.3 K/uL (1.8-7.8); NEUTROPHIL % 56.6 %; NRBC % 0 /100WBC (0-0.00); RBC 3.97 M/uL (3.50-5.50); RDW-CV 12.4 % (11.9-14.6); WBC 4.1 K/uL (4.0-11.0)
[2016-08-16 09:40] LABS: ALBUMIN 3.1 gm/dL (3.5-5.0); ALK PHOS 46 IU/L (33-138); ALT 22 IU/L (12-78); ANION GAP 9.9 (10.0-19.0); AST 23 IU/L (10-40); BLOOD UREA NITROGEN 13 mg/dL (6-24); CALCIUM 7.9 mg/dL (8.5-10.5); CHLORIDE 111 mMol/L (96-110); CO2 28 mMol/L (22-32); CREATININE 0.7 mg/dL (0.5-1.1); ESTIMATED GFR (MDRD EQUATION) > 60; PLATELET COUNT 191 K/uL (150-450); POTASSIUM 3.9 mMol/L (3.7-5.1); SODIUM 145 mMol/L (135-145); TOTAL BILIRUBIN 0.6 mg/dL (0.0-1.5); TOTAL PROTEIN 6.1 g/dL (6.0-8.4)
--- NOTE | 2016-08-16 17:05 | NUR ---
Significant Event: A/O x3, cooperative with cares. VSS, SBPs 100-120s, HRs 50-60s, on room air. Heart cath today. R) radial site, soft non-tender. Started to release air out of R) band; approximatley 10 ml released et site began to ooze. Dr. Garcia present at that time. 6 ml of air added to R) band. Distal part of LAD ballooned. Up with assist of family to bathroom; ambulated [place] with cardiac rehab Follow up: d/c tomorrow
--- NOTE | 2016-08-17 04:50 | NUR ---
Significant Event: Patient alert and oriented x3. Vital signs stable. Complained of severe headache. 2 tabs Excedrin given and 1L O2 applied for comfort with relief. Right radial site soft with 2+ pulse. Band-aid and coban applied. Up independently in room. No complaints of chest pain, shortness of breath, nausea. Daughter at bedside. Calm and cooperative with all cares. Follow up: Dr. Harp to see this morning. Home today.
[2016-08-17 06:16] LABS: ALBUMIN 3.2 gm/dL (3.5-5.0); ALK PHOS 45 IU/L (33-138); ALT 21 IU/L (12-78); AST 19 IU/L (10-40); BLOOD UREA NITROGEN 11 mg/dL (6-24); CHLORIDE 110 mMol/L (96-110); CO2 25 mMol/L (22-32); CREATININE 0.8 mg/dL (0.5-1.1); ESTIMATED GFR (MDRD EQUATION) > 60; SODIUM 143 mMol/L (135-145); TOTAL BILIRUBIN 0.5 mg/dL (0.0-1.5); TOTAL PROTEIN 6.2 g/dL (6.0-8.4)
[2016-08-17] MEDS ORDERED: LIPITOR40 MG PO (12:37)
[2016-08-17] MEDS ORDERED: PLAVIX75 MG PO (12:38)
[2016-08-17] MEDS ORDERED: VASOTEC2.5 MG PO (12:39)
[2016-08-17] MEDS ORDERED: TOPROL XL25 MG PO (12:40)
[2016-08-17] MEDS ORDERED: EXCEDRIN EXTRA1 TAB PO (12:42)
[2016-08-17] MEDS ORDERED: ECOTRIN325 MG PO (12:46)
[2016-08-17] MEDS ORDERED: DEPAKOTE DELAY250 MG PO (12:47)
[2016-08-17] MEDS ORDERED: FIORICET 50-301 EACH PO (12:49)
[2016-08-17] MEDS ORDERED: NITRO-DUR1 EAC1 TRANS (12:54)
--- NOTE | 2016-08-17 15:52 | NUR ---
DISM. NOTE: REVIEW OF HOME MEDS AND NEW MEDS WITH HANDOUTS AND SIDE EFFECTS DISCUSSED. PRESCRIPTIONS GIVEN. HOME INSTRUCTIONS POST HEART CATH, RADIAL APPROACH. FOLLOW UP APPT. DIET/ ACTIVITY PATIENT AND DAUGHTER VOICED UNDERSTANDING
== END 2016-08-17 15:45 | disposition disaster alternative care site (69) | DRG 251 ==
LOC: GMED 14:01 → GPCU 15:53
PROVIDERS: Internal Medicine Interventional Cardiology; Physician Assistant Medical; ADMIT Family Medicine
PROC: B2111ZZ Fluoroscopy of Multiple Coronary Arteries using Low Osmolar Contrast (ICD-10-PCS; principal; 2016-08-16)
PROC: 4A023N7 Measurement of Cardiac Sampling and Pressure, Left Heart, Percutaneous Approach (ICD-10-PCS; principal; 2016-08-16)
PROC: 02703ZZ Dilation of Coronary Artery, One Artery, Percutaneous Approach (ICD-10-PCS; principal; 2016-08-16)
DX: I21.4 Non-ST elevation (NSTEMI) myocardial infarction (principal); G43.909 Migraine, unspecified, not intractable, without status migrainosus; I25.10 Atherosclerotic heart disease of native coronary artery without angina pectoris
CPT/HCPCS: C1725; C1769; C1887; C1894; J0461; J0583; J0780; J1200; J1644; J1885; J2250; J2270; J3010; J7030; J7060

== ENCOUNTER → 2016-09-08 | Outpatient (CLI) | payer OTHER ==
[~2016-09-08] MED LIST: DEPAKOTE DELAY250 MG PO; ECOTRIN325 MG PO; EXCEDRIN EXTRA1 TAB PO; EXCEDRIN MIGRA1 EACH PO; FIORICET 50-301 EACH PO; LIPITOR40 MG PO; MAXALT10 MG PO; NAPROSYN500 MG PO; NITRO-DUR1 EAC1 TRANS; PLAVIX75 MG PO; TOPROL XL25 MG PO; VASOTEC2.5 MG PO; VITAMIN D5000 UNIT PO; VIVELLE-DOT1 EAC1 TRANS
[2016-09-08 10:12] LABS: ALBUMIN 3.9 gm/dL (3.5-5.0); ALK PHOS 47 IU/L (33-138); ALT 26 IU/L (12-78); ANION GAP 12.9 (10.0-19.0); AST 22 IU/L (10-40); BLOOD UREA NITROGEN 16 mg/dL (6-24); CALCIUM 8.6 mg/dL (8.5-10.5); CHLORIDE 107 mMol/L (96-110); CO2 27 mMol/L (22-32); CREATININE 0.8 mg/dL (0.5-1.1); ESTIMATED GFR (MDRD EQUATION) > 60; POTASSIUM 3.9 mMol/L (3.7-5.1); SODIUM 143 mMol/L (135-145); TOTAL BILIRUBIN 0.5 mg/dL (0.0-1.5); TOTAL PROTEIN 7.6 g/dL (6.0-8.4)
== END | disposition disaster alternative care site (69) ==
LOC: LNHI 09:46
PROVIDERS: Internal Medicine Interventional Cardiology
DX: I25.10 Atherosclerotic heart disease of native coronary artery without angina pectoris (principal)